=== PATIENT | male | born 1950 | race Caucasian/White ===

== ENCOUNTER 2017-09-12 09:01 | Observation (INO) | payer OTHER, MEDICARE ==
[2017-09-12] MEDS ORDERED: OPIUM/BELLADONNA ALKALO SUPP PR PRN (10:10)
[2017-09-12] MEDS ORDERED: LR 1,000 ML IV ONE (10:28)
[2017-09-12] MEDS ORDERED: LIDOCAINE 1% 2 ML INJ ID PRN (10:28)
[2017-09-12] MEDS ORDERED: LIDOCAINE 1% 2 ML INJ ONE (10:36)
[2017-09-12] MEDS ORDERED: MIDAZOLAM 2 MG/2 ML VIAL IVP ONE (10:52)
--- NOTE | 2017-09-12 10:53 | PDANEPAE ---
ANE Past Medical History - Cardiovascular History Hx Hypertension: No Hx Arrhythmias: No Hx Chest Pain: No Hx Coronary Artery / Peripheral Vascular Disease: No Hx CHF / Valvular Disease: No Hx Palpitations: No - Pulmonary History Hx COPD: No Hx Asthma/Reactive Airway Disease: No Hx Recent Upper Respiratory Infection: No Hx Oxygen in Use at Home: No Hx Sleep Apnea: No Sleep Apnea Screening Result - Last Documented: Negative - Neurologic History Hx Cerebrovascular Accident: No Hx Seizures: No Hx Dementia: No - Endocrine History Hx Diabetes: No Obesity: no - Renal History Hx Renal Disorders: Yes Renal History Comment: coming in for turp - Liver History Hx Hepatic Disorders: No - Neurological & Psychiatric Hx Hx Neurological and Psychiatric Disorders: No - Cancer History Hx Cancer: No - Congenital Disorder History Hx Congenital Disorders: No - GI History Hx Gastrointestinal Disorders: No - Other Health History Other Health History: psoriasis - Chronic Pain History Chronic Pain: No - Surgical History Prior Surgeries: cosmetic surgery to face. hair transplants ANE Review of Systems Review of Systems: - Exercise capacity Exercise capacity: >=4 METS METS (RN): 4 METS ANE Patient History - Allergies Allergies/Adverse Reactions: No Known Allergies Allergy (Verified 08/08/17 13:08) - Home Medications Home Medications: Calcipotriol Cream 1 emily TP DAILY PRN 08/08/17 [Last Taken 09/10/17] Cholecalciferol Vit D3 [Vitamin D3 (*)] 1,000 units PO DAILY 08/08/17 [Last Taken 09/07/17] Herbals/Supplements -Info Only 1 ea PO DAILY 08/08/17 [Last Taken 09/07/17] Vitamin B Complex [Super B-50 Complex] 1 each PO DAILY 08/08/17 [Last Taken 07/15] - NPO status NPO Since - Liquids (Date): 09/11/17 NPO Since - Liquids (Time): 23:00 NPO Since - Solids (Date): 09/11/17 NPO Since - Solids (Time): 21:00 - Anes Hx Anes Hx: no prior problems - Smoking Hx Smoking Status: Never smoked - Family Anes Hx Family Hx Anesthesia Complications: none ANE Labs/Vital Signs - Vital Signs Blood Pressure: 111/66 Heart Rate: 60 Respiratory Rate: 16 O2 Sat (%): 99 Height: 167.64 cm Weight: 56.699 kg ANE Physical Exam - Airway Neck exam: FROM Mallampati Score: Class 1 Mouth exam: normal dental/mouth exam - Pulmonary Pulmonary: no respiratory distress, no rales or rhonchi, clear to auscultation - Cardiovascular Cardiovascular: regular rate and rhythym, no murmur, rub, or gallop - ASA Status ASA Status: I ANE Anesthesia Plan Anesthesia Plan: GA w LMA
[2017-09-12] MEDS ORDERED: OPIUM/BELLADONNA ALKALO SUPP PR ONE (10:56)
--- NOTE | 2017-09-12 10:56 | PDHPUP ---
History & Physical Update H&P update statement: This history and physical update is based on an assessment of the patient which was completed after admission or registration (within 24 hours), but prior to the surgery/procedure. H&P update: H&P reviewed & patient examined, no change in patient's condition since H&P completed
[2017-09-12] MEDS ORDERED: PROPOFOL 200 MG/20 ML VIAL ONE (10:59)
[2017-09-12] MEDS ORDERED: fentaNYL 250 MCG/5 ML INJ ONE (10:59)
[2017-09-12] MEDS ORDERED: ceFAZolin 2 GM/SWFI 2 GM/20 ML SYR IVP ONE (11:00)
[2017-09-12] MEDS ORDERED: DEXAMETHASONE 4 MG/ML VIAL ONE ×2 (11:00)
[2017-09-12] MEDS ORDERED: ONDANSETRON 4 MG/2 ML VIAL ONE (11:00)
[2017-09-12] MEDS ORDERED: LIDOCAINE 2% JELLY 5 ML TUBE ONE (11:00)
[2017-09-12] MEDS ORDERED: MIDAZOLAM 2 MG/2 ML VIAL ONE (11:03)
[2017-09-12] MEDS ORDERED: LIDOCAINE 2% JELLY 20 ML (UROJECT) ONE (11:34)
[2017-09-12] MEDS ORDERED: OXYCODONE/APAP 5/325 TAB PO PRN (12:55)
[2017-09-12] MEDS ORDERED: fentaNYL 100 MCG/2 ML INJ IVP PRN (12:55)
[2017-09-12] MEDS ORDERED: ACETAMINOPHEN 500 MG TAB PO PRN (12:55)
[2017-09-12] MEDS ORDERED: PROMETHAZINE HCL 25 MG/ML INJ IVP PRN (12:55)
[2017-09-12] MEDS ORDERED: NALOXONE HCL 0.4 MG/ML INJ IVP PRN (12:55)
[2017-09-12] MEDS ORDERED: ONDANSETRON 4 MG/2 ML VIAL IVP PRN ×2 (12:55→13:56)
[2017-09-12] MEDS ORDERED: LIDOCAINE 2% 5 ML SDV ONE (13:15)
[2017-09-12] MEDS ORDERED: HYDROCODONE/APAP 5/325 TAB PO PRN (13:52)
--- NOTE | 2017-09-12 13:52 | POSTOPPROG ---
Post Op Note Date of Operation: 09/12/17 Surgeon: Jaquelin Willams Anesthesia: GET(General Endotracheal) Pre-op Diagnosis: BPH, trilobar hypertrophy, LUTs Post-op Diagnosis: same Indication: BPH, LUTs Procedure: cystoscopy, TURP in saline Findings: trilobar hypertrophy Inf/Abcess present in the surg proc area at time of surgery?: No Depth: Organ Space (bladder) EBL: 150mL Complications: None, patient tolerated procedure well Drains: Other (rangel)
[2017-09-12] MEDS ORDERED: HYDROmorphONE/DILAUDID 1 MG/ML INJ IVP PRN (13:56)
[2017-09-12] MEDS ORDERED: SENNOSIDES/DOCUSATE SODIUM TAB PO PRN (13:58)
[2017-09-12] MEDS ORDERED: ceFAZolin 2 GM in D5W 100 ML IV SCH (14:00)
[2017-09-12] MEDS: D5W LR 1,000 ML IV SCH (15:20)
--- NOTE | 2017-09-12 15:46 | POSTANESTH ---
Post Anesthetic Evaluation Cardiovascular Status: Normal, Stable, Similar to Pre-Op Cond Respiratory Status: Normal, Stable, Similar to Pre-op Cond. Level of Consciousness/Mental Status: Can Participate in Eval, Mildly Sleepy, Arousable Pain Control: Adequate, Prn Tx Ordered Nausea/Vomiting Control: Adequate, Prn Tx Ordered Complications Possibly Related to Anesthesia: None Noted
[2017-09-12] MEDS: ceFAZolin 2 GM/SWFI 2 GM/20 ML SYR IVP SCH (19:24)
[2017-09-13] MEDS: D5W LR 1,000 ML IV SCH (01:27)
[2017-09-13] MEDS: ceFAZolin 2 GM/SWFI 2 GM/20 ML SYR IVP SCH (02:57)
[2017-09-13 07:42] VITALS: BP 118/65; PULSE 71; RESP 18; TEMP 97.7; O2SAT 98
--- NOTE | 2017-09-13 10:07 | ASMTCMCOM ---
CM Note CM Note Notes: Pt will have no DC needs. Date Signed: 09/13/2017 10:07 AM Electronically Signed By:Khushi Galvan LCSW
[2017-09-13] MEDS ORDERED: LIDOCAINE 2% JELLY 20 ML (UROJECT) UR ONE (10:24)
--- NOTE | 2017-09-13 10:28 | SOAPPROG ---
SOAP Progress Note Assessment/Plan: Assessment: POD 1 TURP, large gland CBI off, urine in tube clear yellow. Plan: 09/13/17 10:24 DC home today w rangel catheter. Activity restrictions reviewed. F/U Friday for voiding trail in my clinic Subjective: NAEON Catheter uncomfortable at tip of penis. CBI has been off fir 3hrs, urine clear. Eddie diet Objective: Vital Signs Temp Pulse Resp BP Pulse Ox 36.5 C 71 18 118/65 98 09/13/17 07:41 09/13/17 07:41 09/13/17 07:41 09/13/17 07:41 09/13/17 07:41 09/12/17 09/13/17 09/14/17 05:59 05:59 05:59 Intake Total 1830 1169 Output Total 900 3175 Balance 930 -2006 Gen NAD A&O CV regular Lungs normal effort Abd soft Ext warm rangel in place, exchanged without difficulty to 18F coude. - Pending Discharge Pending Discharge Within 24 Hours: Yes Pending Discharge Date: 09/14/17 Pending Discharge Time: 11:00 ICD10 Worksheet Patient Problems: Problems Problem Status Onset BPH (benign prostatic hyperplasia) Acute - ICD10 Problem Qualifiers (1) BPH (benign prostatic hyperplasia)
--- NOTE | 2017-09-13 21:28 | GOP ---
[f rep st] OPERATIVE REPORT DATE OF OPERATION: 09/12/2017 SURGEON: Jaquelin Willams MD PREOPERATIVE DIAGNOSIS: Benign prostatic hypertrophy, trilobar hypertrophy, and lower urinary tract symptoms. POSTOPERATIVE DIAGNOSIS: Benign prostatic hypertrophy, trilobar hypertrophy, and lower urinary tract symptoms. PROCEDURE PERFORMED: Cystoscopy and transurethral resection of prostate in saline. FINDINGS: ESTIMATED BLOOD LOSS: 150 mL. INDICATIONS: The patient presented to my office with lower urinary tract symptoms, and cystoscopy in clinic demonstrated trilobar hypertrophy and a large gland. Recommended management was a transureth ral resection of the prostate in saline. DESCRIPTION OF PROCEDURE: The patient was seen in the preoperative holding area where, again, the ra tionale, risks, and benefits of the procedure were discussed, including bleeding, infection, need for a short-term Harry catheter, and overnight stay in the hospital, and the patient agreed to proceed. He was taken back to the operating room and placed on the operating table in a supine position. Gene ral anesthesia induced without complication. Timeout performed and core measures satisfied, includin g verification that he had a Dm hugger, SCDs were placed and turned on, and that he had received An cef antibiotics. He was brought to the end of the table and placed in a dorsal lithotomy position. All pressure points padded. Genitalia draped and prepped in a standard sterile fashion with Betadine . A visual obturator for the resectoscope was assembled and easily cannulated in his urethral meatus, a nd visually, I was able to advance the obturator for the TURIS resectoscope in the urethra, past the prostate, which was very large, very large coapting lobes, and into the bladder. Once in the bladder , I had return of urine, and I assembled my handpiece for the resectoscope with a thin loop. I looke d in the bladder, found the right ureteral orifice, pulled my scope distal from this to the level of the prostate, and made a trough going from the prostate bladder neck back to just proximal to the lalo u. I did the same after I found the left ureteral orifice, and again made a trough, and then I resec ting the intervening tissue, which encompassed a very large medial lobe, with the resectoscope. I wor ked from the level of the bladder neck, then posteriorly back just proximal to the veru. Again, I ke pt in my vision the veru at all times and made sure I did not violate the structure. Once I was happy with the median lobe and the posterior resection, I moved on the left lateral lobe, then the right lateral lobe with my resection, again being careful to keep the verumontanum in my vis ion to know where to stop the resection, and I resected the adenoma on the right lobe and the left la teral lobes, and then resected the anterior tissue. He had quite a bit of anterior tissue as his pro state circumferentially obstructed the prostatic urethra from the bladder neck, with quite a bit of a nterior tissue, so I did take that down as well. I maintained hemostasis throughout the procedure. I resected down to the level of fibers, knowing that I had resected all the adenoma. I then used an [employer] evacuator to remove the chips from inside the bladder. I did this several times and was able t o take out all of the chips. I then very liberally used electrocautery around the prostate resection bed and gained hemostasis from the resection. I checked the right and left ureteral orifices, and t hey were unharmed and untouched by the resection. I also, as I said throughout, looked at the verumo ntanum and did not violate that structure and stayed proximal to this for the entire resection, going around the entire prostatic urethra. At this point, all of the chips were removed. Hemostasis was excellent. I had turned down the fluid and verified that he was hemostatic, and he was. All the chips were out. I removed the resectoscop e and then placed a 24-[place] 3-way Harry catheter, inflated the balloon to 50 mL of normal saline, v erified that irrigant was clear. I started continuous bladder irrigation. I manually irrigated with a Liu catheter for about 200 mL, and he remained clear. I placed his Harry catheter on tension w ith tape on his leg, and the Harry was connected to a Harry bag. I did put lidocaine jelly into his bladder prior to placing the Harry catheter as well, and then put a B and O suppository per rectum. He was now awoken from anesthesia and transferred to PACU in good condition. He will be admitted ove rnight on continuous bladder irrigation. COMPLICATIONS: None. The patient tolerated the procedure well. DRAINS: Harry catheter. /[id number]/MODL
== END 2017-09-13 12:45 | disposition home or self-care (01) ==
LOC: F3N 09:43 → F1N 11:59
PROVIDERS: ADMIT Urology; ATTEND Urology
PROC: 0VB08ZX Excision of Prostate, Via Natural or Artificial Opening Endoscopic, Diagnostic (ICD-10-PCS; principal; 2017-09-12 11:00)
DX: N40.1 Benign prostatic hyperplasia with lower urinary tract symptoms (principal); L40.9 Psoriasis, unspecified
CPT/HCPCS: 52601; 88305; J0690; J1100; J2250; J2405; J2704; J3010

== ENCOUNTER → 2018-09-03 | Outpatient (CLI) | payer OTHER, BC ==
[~2018-09-03] MED LIST: GADOBUTROL 10 ML VIAL IVP ONE
== END ==
LOC: FIMAGING 07:41
PROVIDERS: ATTEND Urology
DX: R97.20 Elevated prostate specific antigen [PSA] (principal); Z98.890 Other specified postprocedural states
CPT/HCPCS: 72197; 76377; A9585; 82565-PO

== ENCOUNTER → 2019-03-26 | Outpatient (CLI) | payer OTHER | LOC: BMCIMAGING 10:17 ==